=== PATIENT | female | born 2000 | race Caucasian/White ===

== ENCOUNTER 2020-12-20 16:10 | Emergency (ER) | payer MEDICAID ==
[~2020-12-20] VITALS: Ht 160 cm; Wt 74.8 kg
[~2020-12-20 16:10] MED LIST: IBUP-81 PO
[2020-12-20 16:14] VITALS: BP 116/70
[2020-12-20] MEDS ORDERED: IBUPROFEN 600 MG TAB PO ONE (16:30)
[2020-12-20] MEDS ORDERED: DEXAMETHASONE 10 MG/ML VIAL IM ONE (16:30)
--- NOTE | 2020-12-20 16:50 | NUR ---
20 YEAR OLD FEMALE COMPLAINS OF SORE THROAT X YESTERDAY. SITE WITH VISIBLE INFLAMMATION. PT DENIES ANY COUGH OR ANY OTHER SYMPTOMS OF COVID. PT AOX4, BREATHING EVEN AND UNLABORED, SKIN WARM AND DRY. BED IN LOWEST POSITION, LOCKED, BED RAIL UPX1. PMH - DENIES ALLERGIES - NKA
[2020-12-20] MEDS ORDERED: AMOX500C25 PO (17:05)
[2020-12-20] MEDS ORDERED: IBUP-2213 PO (17:05)
[2020-12-20 17:25] VITALS: BP 116/70
--- NOTE | 2020-12-20 17:25 | NUR ---
Patient discharged with v/s stable. Written and verbal after care instructions given and explained. Patient alert, oriented and verbalized understanding of instructions. Ambulatory with steady gait. All questions addressed prior to discharge. ID band removed. Patient advised to follow up with PMD. Rx of AMOXICILLIN AND MOTRIN given. Patient educated on indication of medication including possible reaction and side effects. Opportunity to ask questions provided and answered.
== END 2020-12-20 17:25 | disposition home or self-care (01) ==
LOC: MED 16:10
DX: J03.90 Acute tonsillitis, unspecified (principal)
CPT/HCPCS: 87081; 96372; 99283; J1100